=== PATIENT | male | born 1975 | race Caucasian/White ===

== ENCOUNTER 2016-09-13 12:06 | Emergency (ER) | payer OTHER ==
[2016-09-13 12:22] VITALS: BP 121/71; PULSE 50; RESP 18; TEMP 98; O2SAT 100
--- NOTE | 2016-09-13 13:02 | C.PDOC ---
History Of Present Illness 41 year old patient presents to the ED complaining of a splinter to his right hand for the past 3 days. Patient reports he works in construction. He was trying to pull the splinter out himself, but still feels like a foreign body sensation. Patient denies any fever, discharge, injury, or numbness. Patient is unsure of his Tetanus vaccination status. Time Seen by Provider: 09/13/16 12:31 Chief Complaint (Nursing): Foreign Body History Per: Patient History/Exam Limitations: no limitations Onset/Duration Of Symptoms: Days (3) Current Symptoms Are (Timing): Still Present Location Of Injury: Left: Hand Quality Of Symptoms: Other (foreign body sensation) Severity: Mild Pain Scale Rating Of: 3 Recent travel outside of the [place]: No Past Medical History Reviewed: Historical Data, Nursing Documentation, Vital Signs Vital Signs: Last Vital Signs Temp 98 F 09/13/16 12:21 Pulse 50 L 09/13/16 12:21 Resp 18 09/13/16 12:21 BP 121/71 09/13/16 12:21 Pulse Ox 100 09/13/16 14:29 Family History: States: Unknown Family Hx - Social History Hx Tobacco Use: No Hx Alcohol Use: No Hx Substance Use: No - Immunization History Hx Tetanus Toxoid Vaccination: No Hx Influenza Vaccination: No Hx Pneumococcal Vaccination: No Review Of Systems Except As Marked, All Systems Reviewed And Found Negative. Constitutional: Negative for: Fever Musculoskeletal: Positive for: Hand Pain (left) Skin: Negative for: Other (discharge) Neurological: Negative for: Numbness Physical Exam - Physical Exam Appears: Non-toxic, No Acute Distress Skin: Warm, Dry Head: Atraumatic, Normacephalic Eye(s): bilateral: Normal Inspection Neck: Normal ROM, Supple Chest: Symmetrical Extremity: Normal ROM, No Deformity, No Swelling, Other (Left hand: mild erythema and superficial scab to palmar thenar aspect of hand, no visible foreign body, mass, or discharge) Pulses: Left Radial: Normal Neurological/Psych: Oriented x3, Normal Speech, Normal Sensation Gait: Steady ED Course And Treatment O2 Sat by Pulse Oximetry: 100 (room air) Pulse Ox Interpretation: Normal - Other Rad left hand x-ray X-Ray: Interpreted by Me, Viewed By Me Interpretation: no fractures. no abnormalities. no foreign body. Medical Decision Making Medical Decision Making: Impression: 41 y/o male with foreign body sensation Plan: * Tetanus * Left hand x-ray Progress: Xray ordered to rule out foreign body. tetanus administered Xray shows no foreign body. Advise patient to keep area clean and dry and aware of any signs of infection to return to ER Disposition Counseled Patient/Family Regarding: Diagnosis, Need For Followup - Disposition Referrals: [facility] [Outside] at [facility] [Outside] Disposition: HOME/ ROUTINE Disposition Time: 13:19 Condition: STABLE Additional Instructions: Valle radiografa fue normal, no se rhys ninguna fractura ni cuerpo extrao Mantener la herida limpia y seca Instructions: Abrasion (ED) Print Language: SUDANESE - POA Present On Arrival: None - Clinical Impression Clinical Impression: No foreign body found on evaluation - PA / WEB SPECIALIST / Resident Statement MD/DO has reviewed & agrees with the documentation as recorded. - Scribe Statement The provider has reviewed the documentation as recorded by the Scribe Nayla Estevez All medical record entries made by the Scribe were at my direction and personally dictated by me. I have reviewed the chart and agree that the record accurately reflects my personal performance of the history, physical exam, medical decision making, and the department course for this patient. I have also personally directed, reviewed, and agree with the discharge instructions and disposition.
--- NOTE | 2016-09-13 13:39 | RAD ---
PROCEDURE: Left Hand Radiographs. HISTORY: pain near thumb reports splinter COMPARISON: None. FINDINGS: BONES: Normal. No fracture. JOINTS: Normal. No osteoarthritic changes. SOFT TISSUES: No visualized/radiopaque foreign body OTHER FINDINGS: None. IMPRESSION: No significant or acute findings to account for/ related to the clinical presentation. Concordant results with the preliminary interpretation rendered by the emergency department physician procedure.
== END 2016-09-13 13:27 | disposition home or self-care (01) ==
LOC: C.ER 12:06
DX: R23.4 Changes in skin texture (principal)